=== PATIENT | male | born 1965 | race American Indian/Alaskan Native ===

== ENCOUNTER 2019-05-15 20:30 | Emergency (ER) | payer OTHER ==
[2019-05-15 20:38] VITALS: BP 156/85
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
[2019-05-15] MEDS ORDERED: IBUPROFEN 600 MG TAB PO ONE (21:18)
[2019-05-15] MEDS ORDERED: HYDROcodone/ACETAMINOPHEN 7.5-325MG TAB PO ONE (21:18)
[2019-05-15] MEDS ORDERED: ONDANSETRON 4 MG ODT TAB PO ONE (21:18)
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
== END 2019-05-15 23:42 | disposition home or self-care (01) ==
LOC: ED 20:30
DX: S16.1XXA Strain of muscle, fascia and tendon at neck level, initial encounter (principal); M62.838 Other muscle spasm; I10 Essential (primary) hypertension; F17.200 Nicotine dependence, unspecified, uncomplicated; Z79.1 Long term (current) use of non-steroidal anti-inflammatories (NSAID); Z79.899 Other long term (current) drug therapy; V49.49XA Driver injured in collision with other motor vehicles in traffic accident, initial encounter; Y93.89 Activity, other specified; Y92.488 Other paved roadways as the place of occurrence of the external cause; Y99.8 Other external cause status
CPT/HCPCS: 72125; Q0162